=== PATIENT | male | born 1985 | race Two or more races ===

== ENCOUNTER 2018-10-08 23:50 | Emergency (ER) | payer OTHER ==
[~2018-10-08] VITALS: Ht 175.3 cm; Wt 66.4 kg
[~2018-10-08 23:50] MED LIST: ACET325T33 PO; TRAM50TA2 PO
[2018-10-09 00:02] VITALS: BP 125/79; PULSE 97; RESP 18; Ht 175.3 cm; Wt 66.4 kg
[2018-10-09] MEDS ORDERED: morphine 4 MG/ML VIAL IV STA (00:42)
--- NOTE | 2018-10-09 00:44 | ERD ---
ER Documentation Chief Complaint Chief Complaint C/O PAIN AND SWELLING TO TIP OF PENIS SINCE YESTERDAY MORNING HPI This is a 33-year-old male presents to emerge department with complaints of pain and swelling to the penis since this happened after sex. Patient stated that he is not circumcised. He also stated that this happened 10 years ago and just applied ice on it and swelling has decreased. Patient denies tearing sensation, ripping sound during sexual intercourse. Denies headache, head injury, loss of consciousness, dizziness, neck pain, neck stiffness, throat pain, difficulty swallowing, difficulty breathing lying flat, shoulder pain, chest pain, back pain, abdominal pain, nausea, vomiting, constipation, diarrhea, urinary symptoms, loss of bowel and bladder control, falls, difficulty walking due to pain, numbness or tingling sensation, calf pain, recent travel, recent major surgery in the last 3 weeks, calf pain, recent long travel, recent exposure to any illness, recent antibiotic use in the last 3 months, fever, chills, seizures. Past medical history: Surgical history: Social: Denies smoking, use of alcoholic beverages, use of illegal drugs. ROS All systems reviewed and are negative except as per history of present illness. Medications Home Meds Active Scripts Ibuprofen* (Motrin*) 800 Mg Tab, 800 MG PO Q6H PRN for PAIN AND OR ELEVATED TEMP, #30 TAB Prov:SUSAN DEE 10/09/18 Tramadol HCl (Tramadol HCl) 50 Mg Tablet, 50 MG PO TID PRN for flank pain for 30 Days, #90 TAB As needed for flank pain Prov:JENNIFER COWAN M.D. 01/21/16 Acetaminophen* (Tylenol*) 325 Mg Tablet, 650 MG PO Q6H PRN for pain/fever for 30 Days, #60 TAB as needed for headache or fever (instead of ibuprofen/Advil/Motrin) Prov:JENNIFER COWAN M.D. 01/21/16 Allergies Allergies: Coded Allergies: No Known Allergy (Unverified , 10/09/18) PMhx/Soc History of Surgery: No Anesthesia Reaction: No Hx Neurological Disorder: No Hx Respiratory Disorders: No Hx Cardiac Disorders: No Hx Psychiatric Problems: No Hx Miscellaneous Medical Probl: Yes (strep throut) Hx Alcohol Use: Yes (occasionally) Hx Substance Use: No Hx Tobacco Use: Yes (1 pack a day) Physical Exam Vitals Physical Exam Const: No acute distress Head: Atraumatic Eyes: Normal Conjunctiva ENT: Normal External Ears, Nose and Mouth. Neck: Full range of motion. No meningismus. Resp: Clear to auscultation bilaterally Cardio: Regular rate and rhythm, no murmurs Abd: Soft, non tender, non distended. Normal bowel sounds. : Scrotal area has no swelling/discoloration/tenderness. Significant swelling to penis. No bleeding. No discharge. Skin: No petechiae or rashes Back: No midline or flank tenderness Ext: No cyanosis, or edema Neur: Awake and alert Psych: Normal Mood and Affect Results 24 hrs Current Medications Medications Dose Sig/Tra Start Time Status Last (Trade) Ordered Route PRN Stop Time Admin Dose Reason Admin Morphine 4 mg ONCE STAT 10/09/18 DC 10/09/18 Sulfate IV 00:42 01:28 (morphine) 10/09/18 00:44 Ondansetron 4 mg ONCE STAT 10/09/18 DC 10/09/18 HCl (Zofran IV 01:22 01:28 Inj) 10/09/18 01:23 1 mg ONCE STAT 10/09/18 DC 10/09/18 Hydromorphone IV 02:12 03:36 HCl 10/09/18 02:13 (Dilaudid) Procedures/MDM Diagnostic tests: Clinical exam. Treatment: Saline lock. Morphine IV. Zofran IV. Soaked on granulated sugar. Swelling has minimally decreased. This case was discussed with my supervising physician, Dr. Roque Perez who also examined the patient. Who consulted the urologist. Dr. Roque Perez, examined the patient and reduced the swelling. Re-evaluation: Swelling has decreased tremendously. Paraphimosis has resolved. Observed for an hour. Reevaluated again. Patient stated that he is ready and comfortable to go home. Differential diagnosis I have low suspicion for penile fracture, strangulation, testicular torsion, hernia. Final diagnosis: Paraphimosis secondary to trauma that has resolved. Prescription: Motrin. Follow-up with PCP in the next 24-48 hours. PCP to refer patient to urologist in the next 24-48 hours. Come back here in the emergency department for any new symptoms or any worsening symptoms. All questions and concerns were answered. Patient and family members verbalized understanding and agreed with plan of care. Hemodynamically stable on discharge. Departure Diagnosis: Primary Impression: Paraphimosis Condition: Stable Additional Instructions: Follow-up with PCP in the next 24-48 hours. PCP to refer patient to urologist in the next 24-48 hours. Come back here in the emergency department for any new symptoms or any worsening symptoms. SUSAN DEE Oct 09, 2018 00:44
[2018-10-09] MEDS ORDERED: ONDANSETRON 4 MG INJ IV STA (01:22)
[2018-10-09] MEDS ORDERED: HYDROmorphONE 0.5 MG/0.5 ML SYG IV STA (02:12)
--- NOTE | 2018-10-09 03:46 | QN ---
Documentation Comment I have seen and evaluated the patient along with the PA and/or [employer] provider. I agree with the evaluation and plan of care. Please see their documentation for full ER course and evaluation. In short: The patient presents with paraphimosis On exam: The patient's glans and foreskin are edematous, swollen with mild excoriations, paraphimosis is noted Assessment and plan: The patient has clinical paraphimosis. The patient has been evaluated and treated by my [employer] team. The patient had application of ice with only mild improvement. Sugar had been applied with mild improvement. During my observation the patient swelling did improve. Using Dilaudid, gentle traction and pressure in the glans penis I was able to successfully reduce the foreskin. The patient does have mild edema and swelling but dramatically improved pain and swelling. The patient will be observed for 30 minutes if the patient's swelling continues to improve and pain improves he can be safely discharged. I discussed the case with Dr. Rios who agrees. Consultation: Urology Dr. Rios Diagnostic impression paraphimosis status post reduction of foreskin ROBERTO KRAMER MD Oct 09, 2018 03:46
[2018-10-09] MEDS ORDERED: IBUP800T48 PO (04:20)
== END 2018-10-09 05:16 | disposition home or self-care (01) ==
LOC: FTE 23:50
DX: N47.2 Paraphimosis (principal); F17.210 Nicotine dependence, cigarettes, uncomplicated
CPT/HCPCS: J1170; J2270; J2405; 96374; 96375